=== PATIENT | female | born 1980 | race Caucasian/White ===

== ENCOUNTER 2016-08-04 14:44 | Emergency (ER) | payer MEDICAID ==
[~2016-08-04] VITALS: Ht 160 cm; Wt 54.7 kg
[~2016-08-04 14:44] MED LIST: DOCU-30 PO; IBUP-1222 PO; IBUP200C PO; OXYC-302 PO; PREN1TAB52 PO; TAMS0.4C2 PO
[2016-08-04 16:19] LABS: ASPARTATE AMINO TRANSFERASE 10 U/L (15-37); BLOOD UREA NITROGEN 11 mg/dL (7-18)
[2016-08-04 16:24] LABS: IS PT STATUS REG ER OR PRE ER? YES
[2016-08-04] MEDS ORDERED: MECLIZINE CHEWABLE 25 MG TAB PO ONE (17:30)
[2016-08-04] MEDS ORDERED: SODIUM CHLORIDE 0.9% 1,000ML IVBOLUS ONE (17:30)
[2016-08-04] MEDS ORDERED: MECLIZINE CHEWABLE 25 MG TAB ONE (18:08)
[2016-08-04 19:14] VITALS: BP 109/65
== END 2016-08-04 19:17 | disposition home or self-care (01) ==
LOC: ED 19:00
DX: R42 Dizziness and giddiness (principal); K21.9 Gastro-esophageal reflux disease without esophagitis
CPT/HCPCS: 36415; 70551; 71020; 80053; 84484; 84703; 85025; 85379; 93005; 96360; 99285; J7030

== ENCOUNTER 2019-05-30 20:54 | Emergency (ER) | payer MEDICAID, OTHER ==
[~2019-05-30] VITALS: Ht 147.3 cm; Wt 52.8 kg
[~2019-05-30 20:54] MED LIST changes: +DOCU-131 PO; -DOCU-30 PO; +IBUP-1623 PO; -IBUP200C PO
[2019-05-30 21:01] VITALS: BP 134/76
[2019-05-30 22:54] LABS: BASOPHILS # (AUTO) 0.04 x10^3/uL (0-0.1); BASOPHILS % (AUTO) 1 % (0-1); EOSINOPHILS # (AUTO) 0.16 x10^3/uL (0-0.4); EOSINOPHILS % (AUTO) 2 % (1-7); LYMPHOCYTES # (AUTO) 2.66 x10^3/uL (1-3.4); LYMPHOCYTES % (AUTO) 35 % (22-44); MD NO; MEAN CORPUSCULAR HEMOGLOBIN 30.3 pg (27.0-34.8); MEAN CORPUSCULAR HGB CONC 33.6 g/dL (32.4-35.8); MEAN CORPUSCULAR VOLUME 90.3 fL (80-100); MEAN PLATELET VOLUME 9.7 fL (7.4-10.4); MONOCYTES # (AUTO) 0.44 x10^3/uL (0.2-0.8); MONOCYTES % (AUTO) 6 % (2-9); NEUTROPHILS # (AUTO) 4.28 x10^3/uL (1.8-6.8); NEUTROPHILS % (AUTO) 57 % (42-75); PLATELET COUNT 260 x10^3/uL (130-400); RED BLOOD COUNT 4.28 x10^6/uL (3.82-5.3); RED CELL DISTRIBUTION WIDTH 13.9 % (9.6-15.2)
[2019-05-30 23:03] LABS: ALANINE AMINOTRANSFERASE 15 U/L (12-78); ANION GAP 6 mmol/L (5-15); CALCIUM 9.4 mg/dL (8.5-10.1); CHLORIDE 108 mmol/L (98-107)
[2019-05-30 23:07] LABS: ALKALINE PHOSPHATASE 76 U/L (45-117); BILIRUBIN,TOTAL 0.7 mg/dL (0.2-1.0); TOTAL PROTEIN 7.8 g/dL (6.4-8.2); TROPONIN I < 0.015 ng/mL (0.000-0.045)
== END 2019-05-30 23:52 | disposition home or self-care (01) ==
LOC: ED 23:44
DX: E86.0 Dehydration (principal); R06.00 Dyspnea, unspecified; K21.9 Gastro-esophageal reflux disease without esophagitis
CPT/HCPCS: 36415; 71046; 80053; 84484; 85025; 85379; 93005; 99284